=== PATIENT | male | born 1985 | race Hispanic/Latino ===

== ENCOUNTER 2022-02-19 14:20 | Emergency (ER) | payer OTHER ==
[~2022-02-19] VITALS: Ht 170.2 cm; Wt 86.2 kg
[2022-02-19 14:45] LABS: BASOPHILS % (AUTO) 0.2 % (0.0-5.0); EOSINOPHILS % (AUTO) 0.4 % (0.0-8.0); HEMATOCRIT 45.6 % (42-54); LYMPHOCYTES % (AUTO) 19.5 % (21.0-51.0); MEAN CORPUSCULAR HEMOGLOBIN 29.3 pg (27.0-33.0); MEAN CORPUSCULAR HGB CONC 33.8 g/dL (32.0-36.0); MEAN CORPUSCULAR VOLUME 86.7 fL (79-99); MONOCYTES % (AUTO) 8.3 % (3.0-13.0); NEUTROPHILS % (AUTO) 71.5 % (40.0-77.0); PLATELET COUNT (AUTO) 248 K/uL (130-400); RED BLOOD CELL COUNT(AUTO) 5.26 MIL/uL (4.50-6.20); RED CELL DISTRIBUTION WIDTH 12.7 % (11.0-15.5); WHITE BLOOD COUNT (AUTO) 8.1 K/uL (4.8-10.8)
[2022-02-19 14:54] LABS: POTASSIUM 3.5 mmol/L (3.5-5.1)
[2022-02-19 15:04] LABS: ALBUMIN 3.8 g/dL (3.5-5.0); TOTAL PROTEIN, SERUM 7.9 g/dL (6.0-8.3)
[2022-02-19 19:45] VITALS: BP 148/85
[2022-02-19] MEDS ORDERED: FAMOTIDINE 20MG VIAL IV ONE (20:00)
[2022-02-19] MEDS ORDERED: LIDOCAINE HCL 2% VISCOUS 15 ML UDCUP PO ONE (20:00)
[2022-02-19] MEDS ORDERED: METOCLOPRAMIDE 10 MG/2 ML VIAL IM ONE (20:00)
[2022-02-19] MEDS ORDERED: MAG/ALUM/SIMETH 30 ML UDCUP PO ONE (20:00)
[2022-02-19] MEDS ORDERED: FAMO40TA7 PO (21:03)
[2022-02-19] MEDS ORDERED: METO-296 PO (21:03)
== END 2022-02-19 21:13 | disposition home or self-care (01) ==
LOC: EDH 14:20
DX: K21.9 Gastro-esophageal reflux disease without esophagitis (principal); Z20.822 Contact with and (suspected) exposure to COVID-19
CPT/HCPCS: 99284; 96374; 87635; 80053; 83690; 85025; 87804 ×2; 36415; 96372; C9803; J3490; J2765